=== PATIENT | male | born 1960 | race Caucasian/White ===

== ENCOUNTER → 2017-12-11 10:18 | Outpatient (CLI) | payer BC, SELFPAY ==
--- NOTE | 2017-12-11 10:30 | EKG12_ITS ---
Test Reason : PRE-OP Blood Pressure : / mmHG Vent. Rate : 055 BPM Atrial Rate : 055 BPM P-R Int : 122 ms QRS Dur : 086 ms QT Int : 394 ms P-R-T Axes : 031 -50 018 degrees QTc Int : 376 ms Sinus bradycardia Left anterior fascicular block Nonspecific ST abnormality Abnormal ECG Confirmed by LCAIR LUCAS ([id number]), sports editor SLIME JOHNSON ([id number]) on 12/14/2017 1:18:45 PM Referred By: Sterling Mcqueen Confirmed By:CLAIR LUCAS
[2017-12-11 11:24] LABS: Absolute Lymphocyte Count 2.45 X10^3/ul (0.83-4.51); Absolute Neutrophil Count 4.4 X10^3/uL (2.0-7.7); Basophil# 0.01 X10^3/uL; Basophil% 0.1 % (0-1); Eosinophil# 0.03 X10^3/uL; Eosinophils% 0.4 % (0-5); Hematocrit 48.6 % (40-54); Hemoglobin 16.1 g/dl (13.0-16.5); Lymphocyte # 2.45 X10^3/ul (4.0); Lymphocyte % 31.1 % (19-41); Mean Corp Hgb Conc 33.1 g/gl (32-36); Mean Corpuscular Hgb 31.8 pg (27.0-32.0); Mean Platelet Vol. 10.6 fl (6.2-12.0); Monocyte# 0.98 X10^3/uL; Monocyte% 12.4 % (0-10); Neutrophil # 4.41 X10^3/uL (2.7-7.7); Neutrophil % 55.9 % (47-70); Platelet Count 190 K/mm3 (150-450); RBC Distribution Width CV 13.1 % (11.6-14.6); RBC Distribution Width SD 45.1 fl (35.1-43.9); Red Blood Count 5.06 M/mm3 (4.6-6.2); White Blood Count 7.9 K/mm3 (4.4-11.0)
[2017-12-11 11:38] LABS: POSITIVE COUNT NO; POSITIVE DIFFERENTIAL NO; POSITIVE MORPHOLOGY NO
[2017-12-11 11:51] LABS: Anion Gap 4 (5-15); BUN 12 mg/dL (7-18); BUN/Creat Ratio 11.5 RATIO (10-20); Calcium,Total 9.2 mg/dL (8.5-10.1); Chloride 106 mmol/L (98-107); Creatinine, Serum 1.04 mg/dL (0.70-1.30); EST Glomerular Filtration Rate 78 mL/min (>60); Est Glom Filt Rate - Afr Amer 94 mL/min (>60); Glucose 88 mg/dL (74-106); Potassium 4.6 mmol/L (3.5-5.1); Sodium Level 141 mmol/L (136-145)
== END ==
PROVIDERS: Family Provider Family Medicine; PCP Family Medicine; Visit Provider Specialist
DX: Z01.818 Encounter for other preprocedural examination (principal)
CPT/HCPCS: 36415; 80048; 85025; 93005

== ENCOUNTER → 2019-08-21 | Outpatient (CLI) | payer BC, SELFPAY ==
--- NOTE | 2019-08-21 11:17 | CT_ITS ---
STUDY: CT MAXILLOFACIAL SINUSES REASON FOR EXAM: Male, 59 years old. Headache, sinus pain RADIATION DOSAGE (If Supplied By Facility): CTDIvol = ( 33.06 ) mGy, DLP = ( 854.51 ) mGycm TECHNIQUE: The patient was scanned in a multi detector CT scanner. High resolution axial imaging was performed without the administration of intravenous contrast material. Sagittal and coronal images were reconstructed. Individualized dose optimization techniques were used for this CT. COMPARISON: None. FINDINGS: FRONTAL SINUSES: Normal aeration, without mucosal inflammatory disease. ETHMOIDAL SINUSES: Normal aeration, with mucosal inflammatory disease. MAXILLARY SINUSES: Normal aeration, with mucosal inflammatory disease. SPHENOIDAL SINUSES: Normal aeration, without mucosal inflammatory disease. There is patency of the bilateral maxillary infundibuli with normal uncinate processes, ethmoid bullae, and hiatus semilunaris. Normal bilateral middle turbinates. Normal bilateral inferior turbinates. Normal midline nasal septum. There is patency of the bilateral nasal airways. The visualized osseous structures are normal. The visualized bilateral orbital contents are normal. CT/Sinus/Facial Bone IMPRESSION: Mild mucosal thickening in the ethmoid and maxillary sinuses. Electronically Signed: Asael Cervantes MD at 11:33 EDT , Service support ,
== END | disposition home or self-care (01) ==
LOC: CT 11:14
PROVIDERS: Family Provider Family Medicine; PCP Family Medicine; Referring Provider Otolaryngology; Visit Provider Otolaryngology
DX: J32.2 Chronic ethmoidal sinusitis (principal)
CPT/HCPCS: 70486

== ENCOUNTER 2019-08-23 08:02 | Day surgery (SDC) | payer BC, SELFPAY ==
[2019-08-23] VITALS (12 sets, daily range): BP systolic 122–153; BP diastolic 76–102; PULSE 81–98; RESP 16–20; TEMP 36.3–36.9; O2SAT 92–100; BMI 37.5
--- NOTE | 2019-08-23 | ETH_PTH ---
PATIENT: EBONY [place]ACEY [place] [facility] [id number] AGE/SX: 59/M ROOM: RE08/23/[address]: Dr. Yannick Dorantes MD : 1960 BED: DIS: 08/23/2019 SPEC #: [id number] RECD: 08/26/19 07:25 STATUS: LILLIAN COLBY #: [id number] YUE: 08/23/19 00:[address]: Yannick Dorantes DEPT: SURGICAL PATHOLOGY RECD BY: Jos Roberts ENTERED: 08/26/19 08:49 SP TYPE: ETH TISS OTHR DR: Dr. Sterling Nolasco MD Tissues: A - Ethmoid sinus, NOS B - Ethmoid sinus, NOS Procedures: Decalcification bone/plaque Surgery Specimen Level III HEADER OPERATION: Endoscopic sinus nasal maxillary antrostomy, ethmoidectomy PRE-OP DIAGNOSIS: Chronic ethmoidal and frontal sinusitis TISSUE SUBMITTED: A. Right sinus tissue, B. Left sinus tissue MICROSCOPIC DIAGNOSIS A. Right sinus tissue, biopsy: Consistent with chronic sinusitis. Fragments of bone with no pathologic change. B. Left sinus tissue, biopsy: Consistent with chronic sinusitis. Fragments of bone with no pathologic change. AM:heath 08/29/19 MICROSCOPIC DESCRIPTION Slides are reviewed. GROSS DESCRIPTION A - Received in fixative is one container labeled with the patient's name and designated right sinus tissue. The specimen consists of multiple fragments of hemorrhagic soft tissue mixed with possible fragments of bone measuring 3 x 2.5 x 0.3 cm. The entire specimen is submitted in one cassette after decalcification. B - Received in fixative is one container labeled with the patient's name and designated left sinus tissue. The specimen consists of multiple fragments of hemorrhagic soft tissue mixed with possible fragments of bone measuring 3 x 2.5 x 0.3 cm. The entire specimen is submitted in one cassette after decalcification. / SJ:heath 08/26/19 TC: 3 CPT: 14787 x2, 64365 x2
--- NOTE | 2019-08-23 08:15 | EKG12_ITS ---
Test Reason : PRE-OP Blood Pressure : / mmHG Vent. Rate : 066 BPM Atrial Rate : 066 BPM P-R Int : 126 ms QRS Dur : 086 ms QT Int : 404 ms P-R-T Axes : 017 -77 007 degrees QTc Int : 423 ms Normal sinus rhythm Left anterior fascicular block Nonspecific ST abnormality Abnormal ECG Confirmed by MCKINLEY CASIANO, IRENE ([id number]), senior editor SLIME JOHNSON ([id number]) on 08/27/2019 9:07:51 AM Referred By: Yannick Dorantes Confirmed By:IRENE SEN MD
[2019-08-23] MEDS: Lactated Ringers 1,000 ML 100 ML IV ×3 (08:48→14:36)
[2019-08-23] MEDS: Lidocaine 4% 50 ML Bottle (12:30)
[2019-08-23] MEDS: Oxymetazoline 0.05% 1 SPRAY SPRAY.BTL 15 SPRAY (12:30)
--- NOTE | 2019-08-23 12:48 | PCM.OPRPT ---
Problem List (1) Chronic frontal sinusitis Status: Chronic (2) Chronic ethmoidal sinusitis Status: Chronic (3) Chronic maxillary sinusitis Status: Chronic Report of Operation Date of Procedure: 08/23/19 Pre-Operative Diagnosis: Chronic sinusitis Post-Operative Diagnosis: Same Surgery/Procedure Performed:: Bilateral endoscopic maxillary antrostomies, total ethmoidectomies and frontal sinus surgery Description of Surgical Findings:: Aries is a 59-year-old male with chronic sinus congestion and exam showing nasal polyps. CT scan showed changes consistent with chronic ethmoid maxillary and frontal sinusitis and the above sutures often hopes of improvement. The risks, alternatives, potential complications, and benefits were discussed at length and any questions answered to the patient and/or caregiver's satisfaction. Witnessed informed consent was obtained in the office, and the patient and/or caregiver was agreeable to proceed. Procedure went as follows: The patient was identified in the preoperative holding and brought to the operating room, was placed under general anesthesia and intubated. When appropriate anesthesia was obtained, the navigational head gear was placed and confirmed to be operational in accordance with the biological technical officer's directions. Pledgets soaked in a 50-50 mixture of oxymetazoline and 4% topical lidocaine were placed to decongest the nasal mucosa. These were then removed and beginning on the left side using a 0? endoscope the nasal cavity examined. The insertion of the middle turbinate and uncinate process was then injected with 1% lidocaine with 100,000 epinephrine for a total of 2 mL, and a similar injection was then carried on the contralateral side. Upon returning to the left side, the middle turbinate was medialized with a Hart elevator. This allowed examination of the maxillary sinus ostia which was then probed with a double ball seeker. The uncinate process was then outfractured with a J curette and transected with a backbiting forceps. This was then removed with the microdebrider creating a wide maxillary antrostomy. The ethmoid bulla was then entered and a total ethmoidectomy was then carried out working posteriorly to anterior. Multiple polyps were encountered. Any polyps, scar, and mucous secretions were removed. The frontal sinus ostia was then explored and opened with removal of intervening obstructing bone and polyps. Pledgets soaked in oxymetazoline were then placed for hemostasis and attention turned to the contralateral side. Similar procedure and findings were then carried out. Floseal hemostatic agent was then applied. An NG tube was then placed to decompress the stomach and the patient returned to anesthesia, revived and extubated having tolerated the procedure well. Type of Anesthesia:: General Anesthesiologist: Marcus Weiss Special Medications: none Specimen's removed: sinus contents Drains: none Estimated Blood Loss (mL): 150 mL Fluids Replaced: 1000 mL Grafts/Implants Used: none - Complications none - Admit VTE Documentation VTE Present on Admission: No VTE Mechan Device Prophylaxis: SCD's VTE Pharm Prophylaxis ordered?: No
--- NOTE | 2019-08-23 13:03 | PCM.DC ---
- Discharge Diagnoses Current Active Problems: Current Active and Chronic Problems Chronic frontal sinusitis (Chronic) Chronic ethmoidal sinusitis (Chronic) Chronic maxillary sinusitis (Chronic) You will use the following diet at home:: No restrictions Discharge Activity: Return to Normal Activity, May not drive while taking narcotic pain medications. Call your doctor if your incision/area has: Sudden Increased Bleeding Call your doctor if you observe: Fever of 101 or Higher, Uncontrolled pain Allergies/Adverse Reactions: Allergies No Known Allergies Allergy (Verified 08/23/19 08:31) Medications to take at Discharge Fluticasone 0.05% [Flonase Nasal [place]] 1 spray NASAL DAILY 08/19/19 Levothyroxine [Synthroid] 75 mcg PO DAILY 08/19/19 Primary Care Physician: Sterling Nolasco MD [Primary Care Provider] - Test Results: Test results from this visit will be discussed in further detail at your follow-up appointment, if applicable. Please Follow Up With: Yannick Dorantes MD When: 2 weeks
[2019-08-23] MEDS: Ipratropium/Albuterol Sulfate 3 ML AMPUL.NEB INHALATION (13:26)
== END 2019-08-23 15:52 | disposition home or self-care (01) ==
LOC: SDC 08:02 → AC 08:05
PROVIDERS: Anesthesiology; Family Provider Family Medicine; PCP Family Medicine; Referring Provider Otolaryngology; Visit Provider Otolaryngology
PROC: (CPT 31255; principal; 2019-08-23 09:15)
DX: J32.1 Chronic frontal sinusitis (principal); J32.2 Chronic ethmoidal sinusitis; J32.0 Chronic maxillary sinusitis; E06.9 Thyroiditis, unspecified; Z87.891 Personal history of nicotine dependence; Z79.899 Other long term (current) drug therapy
CPT/HCPCS: 31255; 31267; 31276; 36415; 84443; 88304; 88305; 88311; 93005; 94640; J7120; J2405

== ENCOUNTER → 2020-05-05 | Outpatient (CLI) | payer BC, SELFPAY ==
[2019-08-23 08:32] VITALS: BMI 37.5
--- NOTE | 2020-05-05 08:02 | RAD_ITS ---
STUDY: X-RAY - CERVICAL SPINE REASON FOR EXAM: Male, 60 years old. neck/jaw pain TECHNIQUE: 4 view(s) of the cervical spine were obtained. COMPARISON: None FINDINGS: Normal anterior atlantoaxial articulation. Normal odontoid process. Normal cervical lordosis. There is mild flattening and remodeling of the C4-C7 vertebral bodies, with endplate spondylosis throughout this level. There is narrowing of the C4-5 through C6-7 disc spaces. The soft tissue structures are unremarkable. RAD/Cerv Spine 2 or 3 Views IMPRESSION: Degenerative changes of the mid to lower cervical spine as detailed above. Electronically Signed: Casey Walker MD at 16:50 EDT , Service support ,
== END | disposition home or self-care (01) ==
LOC: RAD 08:02
PROVIDERS: PCP Family Medicine; Referring Provider Anesthesiology Pain Medicine; Visit Provider Anesthesiology Pain Medicine
DX: M54.2 Cervicalgia (principal)
CPT/HCPCS: 72040